=== PATIENT | female | born 1990 | race Caucasian/White ===

== ENCOUNTER 2017-05-31 19:05 | Emergency (ER) | payer OTHER ==
[~2017-05-31] VITALS: Ht 160 cm; Wt 63.0 kg
[2017-05-31 19:45] VITALS: BP 129/84; PULSE 78; RESP 16; O2SAT 100
[2017-05-31 21:00] LABS: BASOPHILS % (AUTO) 0.6 % (0-3); EOSINOPHILS % (AUTO) 5.5 % (0-5); MONOCYTES % (AUTO) 5.6 % (4-12); Mean Corpuscular Hemoglobin 29.7 pg (27.0-35.0); NEUTROPHILS % (AUTO) 52.8 % (40-74); Platelet Count 293 bil/L (150-400)
[2017-05-31 21:21] LABS: D-Dimer < 0.50 mg/L FEU (<0.50); INR 0.96 ratio
--- NOTE | 2017-05-31 22:11 | ED.REPORT ---
HPI-General Illness Date of Service May 31, 2017 ED Provider: Kimberley Tian MD Patient is a 26 year old female who presents to the ED complaining of intermittent dizziness for the past 6 months. She also complains of intermittent blurry vision, right knee pain, fatigue, left knee pain and right leg swelling that started yesterday. Patient denies sore throat, fever, changes in her bowel movements or recent illness. The patient was seen by her primary care physician 6 months ago, experiencing hair loss, a facial rash and unexplained weight gain in two months but was told she had normal blood work and recommended to follow up with a electronics engineering technologist. She states that the dizziness has been happening more often in the past three months and occurs when she moves her head fast. The patient states that her knee is not tender to touch but the pain is exacerbated by certain movements. Nursing Notes Stated Complaint: DIZZINESS, RIGHT KNEE PAIN Chief Complaint: General Complaint Nursing Notes Reviewed: Yes Allergies: Coded Allergies: No Known Allergies (Verified Allergy, Unknown, 11/06/14) General Time Seen by MD: 22:11 Chief Complaint Dizziness Hx Obtained From: Patient Arrived By: Walk-in Sudden in Onset?: Yes Onset Occurred: More than a week ago... (3 months) Symptom Duration: Intermittent Location: : Knee right Quality: Painful Radiation: : Does not radiate Recent Healthcare: No recent hospitalization, Recent doctor visit Past Medical History Past Medical History Previous SI and attempt recurrent ear infections ADD/ADHD Past Surgical History None Smoking History Never Smoker Social History Alcohol Use: 1-3 per day Drug Use: Denies drug use Other Social History: Good social support Ambulatory Status Independent Review of Systems hair loss Full Review of Systems Constitutional: Reports: Fatigue, Denies: Chills, Fever Eyes: Reports: Blurred bilateral Ears / Nose / Throat: Denies: Sore throat Respiratory: Denies: Non-productive cough, Shortness of breath GI: Denies: Constipation, Diarrhea Musculoskeletal: Reports: Extremity pain (right knee), Extremity swelling ( right leg) Endocrine: Reports: Weight gain Skin: Reports Rash, Denies Itching Neurologic: Reports: Dizziness, Denies: Numbness, Weakness Complete sys rev & neg: except as marked. Physical Exam Vital Signs Vital Signs Date Time Temp Pulse Resp B/P Pulse Ox O2 Delivery O2 Flow Rate FiO2 05/31/17 23:06 36.7 88 18 120/72 98 Room Air 05/31/17 19:45 36.6 78 16 129/84 100 Room Air Initial VS: Reviewed General/Constitutional: Awake, Alert, No acute distress Head / Eyes: Atraumatic, Normocephalic, PERRL, EOMI ENT: Atraumatic, Airway patent, Mucous membranes moist Respiratory / Chest: Atraumatic, No respiratory distress Lower Extremity / Pelvis / MS: Atraumatic, No swelling, Non-tender, No deformity Skin: Atraumatic, Color NL, No rash, Warm, Dry Neurologic: Oriented X3, Speech NL, No motor deficits, No sensory deficits Psychiatric: Affect NL, Mood NL Interpretation & Diagnostics Lab Results Interpretation Result Diagram: 05/31/17205205/31/172052 Test 05/31/17 20:53 05/31/17 23:09 White Blood Count 7.8th/mm3 (3.8-10.1) Red Blood Count 4.61mil/mm3 (3.90-5.20) Hemoglobin 13.7g/dL (12.0-15.6) Hematocrit 40.1% (35.0-46.0) Mean Corpuscular Volume 87.0fL (81-100) Mean Corpuscular Hemoglobin 29.7pg (27.0-35.0) Mean Corpuscular Hemoglobin Concent 34.2% (32.0-37.0) Red Cell Distribution Width 12.1% (12.3-15.4) Platelet Count 293bil/L (150-400) Neutrophils (%) (Auto) 52.8% (40-74) Lymphocytes (%) (Auto) 35.2% (14-46) Monocytes (%) (Auto) 5.6% (4-12) Eosinophils (%) (Auto) 5.5% (0-5) Basophils (%) (Auto) 0.6% (0-3) Erythrocyte Sedimentation Rate 4mm/hr (0-32) Prothrombin Time 10.3sec (8.1-12.5) Prothromb Time International Ratio 0.96ratio D-Dimer < 0.50mg/L FEU (<0.50) Sodium Level 138mEq/L (134-144) Potassium Level 3.7mEq/L (3.5-5.2) Chloride Level 101mEq/L (97-108) Carbon Dioxide Level 23mmol/L (18-29) Blood Urea Nitrogen 7mg/dL (6-20) Creatinine 0.68mg/dL (0.57-1.00) Estimat Glomerular Filtration Rate 150mL/min (>59) Glucose Level 96mg/dL (60-99) Calcium Level 9.1mg/dL (8.5-10.1) Total Bilirubin 0.2mg/dL (0.0-1.2) Aspartate Amino Transf (AST/SGOT) 14U/L (0-50) Alanine Aminotransferase (ALT/SGPT) 10U/L (0-32) Alkaline Phosphatase 37U/L (25-150) C-Reactive Protein 0.2mg/dL (0.0-0.5) Total Protein 7.3g/dL (6.4-8.4) Albumin 4.3g/dL (3.4-5.0) Thyroid Stimulating Hormone (TSH) 1.920uIU/mL (0.450-4.500) Free Thyroxine 1.34ng/dL (0.82-1.77) Re-Eval/Medical Decision Med Decision/Clinical Course The patient presents with multiple complaints, no significant findings on exam or on any of her studies. She does have some significant changes to her life such as weight gain, hair changes, and skin changes. She is complaining of some right leg swelling over the past 24 hours, it is been intermittent. Her d- dimer is negative which makes a DVT and likely. Patient does not have any history of trauma. It is unclear as the cause of her symptoms. A partial list of differential diagnoses considered were food allergy, DVT, arthritis, nutritional deficiency, thyroid issue, and heavy metal exposure. I explained to the patient that she needs to follow up with a primary care physician to continue to workup her symptoms. Time of Eval: 22:43 Re-Evaluation/Progress Note: Discussed plan for discharge. Patient understands and agrees to plan. All questions were addressed. Counseled Regarding: Diagnosis, Lab results, Need for follow-up, When/why to return to ED Discharge & Departure Primary Impression: Dizziness Additional Impression: Right knee pain Chronicity: acute Qualified Code: M25.561 - Pain in right knee Disposition: Home Discharge Condition All VS Reviewed: Yes Condition: Stable Additional Instructions: At this time, we are uncertain exactly what is causing all of your symptoms. You can try keeping a food journal to help you notice if there is a correlation between when you experience your symptoms and something you ate. You can continue to elevate your leg to help reduce the swelling. You can take Tylenol as needed for your knee pain. Follow up with your primary care physician to have a more in depth thyroid testing including T3 and T4, not just the TSH. Following up with a electronics engineering technologist may also provide insight into the cause of your symptoms. Return to the emergency department if you develop any new or concerning symptoms. Referrals: [facility] ADELITA CORDOBA (PCP) Mihir Attestation Portions of this note were transcribed by Vera Alcaraz. I, Dr. Tian personally performed the history, physical exam and medical decision-making; I reviewed and confirmed the accuracy of the information in the transcribed note. Signed by: Mihir Gamez, 05/31/17 and [id number] copies to: [facility] Jena M MD May 31, 2017 22:11 Abbi Alcaraz May 31, 2017 22:30
[2017-05-31 23:06] VITALS: BP 120/72; PULSE 88; RESP 18; O2SAT 98
== END 2017-05-31 23:11 | disposition home or self-care (01) ==
LOC: SED 19:05
DX: R42 Dizziness and giddiness (principal); M25.561 Pain in right knee; F90.1 Attention-deficit hyperactivity disorder, predominantly hyperactive type